=== PATIENT | female | born 1960 | race African-American/Black ===

== ENCOUNTER 2024-07-22 18:31 | Emergency (ER) | payer OTHER ==
[~2024-07-22] VITALS: Ht 149.9 cm; Wt 49.9 kg
[2024-07-22] MEDS ORDERED: ANORO ELLIPTA1 EACH IH (19:29)
[2024-07-22] MEDS ORDERED: LIPITOR20 MG PO (19:29)
[2024-07-22] MEDS ORDERED: ORPHENADRINE CITRATE 30 MG/ML AMPUL IM ONE (20:00)
[2024-07-22] MEDS ORDERED: ORPHENADRINE CITRATE 30 MG/ML AMPUL ONE (20:11)
[2024-07-22] MEDS ORDERED: KETOROLAC TROMETHAMINE 30 MG VIAL ONE (20:12)
[2024-07-22] MEDS ORDERED: KETOROLAC TROMETHAMINE 30 MG VIAL IM ONE (20:15)
== END 2024-07-22 20:51 | disposition home or self-care (01) ==
LOC: ER 18:33
DX: M79.651 Pain in right thigh (principal); Z88.8 Allergy status to other drugs, medicaments and biological substances